=== PATIENT | female | born 1995 | race Caucasian/White ===

== ENCOUNTER 2017-01-08 13:04 | Emergency (ER) | payer MEDICAID ==
[2017-01-08 13:10] VITALS: RESP 16
[2017-01-08] MEDS ORDERED: Sodium Chloride 0.9% 1,000 ML IV ONE (13:20)
[2017-01-08] MEDS ORDERED: Sodium Chloride 0.9% 1,000 ML ONE (13:25)
[2017-01-08 13:53] LABS: BASO # 0.1 K/uL (0.0-0.2); BASO % 0.9 % (0.0-2.0); EOS # 0.2 K/uL (0.0-0.7); EOS % 2.1 % (0.0-4.0); HEMATOCRIT 41.6 % (34.0-47.0); LYMPH # 2.8 K/uL (1.0-4.3); LYMPH % 26.2 % (20.0-40.0); MEAN CELL VOLUME 87.9 fL (81.0-99.0); MEAN CORPUSCULAR HEMOGLOBIN 28.5 pg (27.0-31.0); MEAN CORPUSCULAR HGB CONC 32.4 g/dL (33.0-37.0); MEAN PLATELET VOLUME 8.6 fL (7.2-11.7); MONO # 0.7 K/uL (0.0-0.8); MONO % 6.3 % (0.0-10.0); RED CELL DISTRIBUTION WIDTH 12.6 % (11.5-14.5); WHITE BLOOD COUNT 10.5 K/uL (4.8-10.8)
[2017-01-08 14:05] LABS: RBC URINE 12 /hpf (0-3); URINE BACTERIA RARE (<OCC); URINE BILIRUBIN NEGATIVE (NEGATIVE); URINE BLOOD NEGATIVE (NEGATIVE); URINE COLOR Yellow (YELLOW); URINE GLUCOSE (UA) NORMAL (Normal); URINE KETONE TRACE mg/dL (NEGATIVE); URINE LEUKOCYTE ESTERASE 3+ Leu/uL (Negative); URINE PROTEIN NEGATIVE (NEGATIVE); URINE UROBILINOGEN NORMAL mg/dL (0.2-1.0); WBC URINE 10 /hpf (0-5)
[2017-01-08 14:31] LABS: CHLORIDE 103 mmol/L (98-107); POTASSIUM 3.9 mmol/L (3.6-5.2); SODIUM 137 mmol/L (132-148)
[2017-01-08 14:33] LABS: BILIRUBIN,TOTAL 0.5 mg/dL (0.2-1.3); GFR AFRICAN-AMERICAN > 60
[2017-01-08 14:34] LABS: ALB/GLOB RATIO 1.4 (1.0-2.1); ALKALINE PHOSPHATASE 54 U/L (38-126); ALT/SGPT 9 U/L (9-52); AST/SGOT 18 U/L (14-36); BLOOD UREA NITROGEN 7 mg/dL (7-17); CARBON DIOXIDE 20 mmol/L (22-30); GLUCOSE,RANDOM 73 mg/dL (65-105); TOTAL PROTEIN 6.5 g/dL (6.3-8.3)
[2017-01-08 14:35] LABS: CALCIUM 7.8 mg/dl (8.6-10.4)
--- NOTE | 2017-01-08 16:52 | US ---
PROCEDURE: OB Pelvic Ultrasound HISTORY: 1 month preg, pelvic pain. COMPARISON: None available. FINDINGS: LMP: 11/24/2016 UTERUS: Gestational sac: Single intrauterine gestation. Heart rate: 124 bpm. age (Ultrasound estimated): 5 weeks 4 days +/-0 weeks 3 days Tali-gestational hemorrhage: None. Date of delivery (Ultrasound estimated) : 09/06/2017 Uterus measures 9.3 x 4.6 x 4.3 cm. Normal in size and appearance. CERVIX: Long and closed. No cervical abnormality seen. RIGHT OVARY: Measures 5 x 2.8 x 3.9 cm. No mass lesion. Normal flow. There is 2 x 1.9 by 1.7 centimeters cyst seen at the right ovary likely represent corpus luteum cyst. LEFT OVARY: Measures 2.5 x 2.1 x 2.3 cm. No solid mass. Normal flow. FREE FLUID: Small amount of fluid seen in the cul de sac. OTHER FINDINGS: None. IMPRESSION: Single intrauterine live with ultrasound estimation of gestational age 5 weeks 4 days +/- 0 weeks 3 days. Estimated date of delivery by ultrasound is 09/06/2017. Small fluid seen in the cul de sac.
--- NOTE | 2017-01-08 16:53 | C.PDOC ---
History Of Present Illness 21 year old female, P:0 M:1, presents to the ED with complaints of suprapubic discomfort. Patient states she had a positive test at home and denies vaginal bleeding, fever, vomiting, or any other complaints at this time. Time Seen by Provider: 01/08/17 13:14 Chief Complaint (Nursing): Female Genitourinary History Per: Patient History/Exam Limitations: no limitations Onset/Duration Of Symptoms: Days Current Symptoms Are (Timing): Still Present Severity: Mild Associated Symptoms: denies: Fever, Chills, Nausea, Vomiting, Urinary Symptoms Abnormal Vaginal Bleeding: No Past Medical History Reviewed: Historical Data, Nursing Documentation, Vital Signs Vital Signs: Last Vital Signs Temp 98.6 F 01/08/17 17:02 Pulse 93 H 01/08/17 17:02 Resp 16 01/08/17 17:02 BP 114/68 01/08/17 17:02 Pulse Ox 97 01/08/17 17:02 - Medical History PMH: Asthma, HTN Surgical History: Tonsillectomy - [facility] Procedures INJECT/INFUSE NEC (04/11/15) NEBULIZER THERAPY (04/02/14) Family History: States: CAD, Diabetes, Hypertension - Social History Hx Tobacco Use: No Hx Alcohol Use: No Hx Substance Use: No - Immunization History Hx Tetanus Toxoid Vaccination: No Hx Influenza Vaccination: No Hx Pneumococcal Vaccination: No Review Of Systems Except As Marked, All Systems Reviewed And Found Negative. Constitutional: Negative for: Fever, Chills Gastrointestinal: Positive for: Abdominal Pain (+Suprapubic discomfort). Negative for: Nausea, Vomiting Genitourinary: Negative for: Dysuria, Frequency, Vaginal Discharge, Vaginal Bleeding Physical Exam - Physical Exam Appears: Non-toxic, No Acute Distress Skin: Normal Color, Warm, Dry Head: Atraumatic, Normacephalic Eye(s): bilateral: Normal Inspection Oral Mucosa: Moist Chest: Symmetrical, No Deformity Cardiovascular: Rhythm Regular, No Murmur Respiratory: Normal Breath Sounds, No Accessory Muscle Use, No Rales, No Rhonchi , No Wheezing Gastrointestinal/Abdominal: Soft, No Tenderness, No Distention, No Guarding, No Rebound Extremity: Normal ROM Neurological/Psych: Oriented x3, Normal Speech, Normal Cognition ED Course And Treatment - Laboratory Results Result Diagrams: 01/08/17 13:45 01/08/17 14:20 Lab Interpretation: Abnormal (quant hcg 7159 H, UA 10 WBC's, blood A+) Urine POC: Positive O2 Sat by Pulse Oximetry: 100 (Room air) Pulse Ox Interpretation: Normal - Other Rad preg US X-Ray: Read By Radiologist (+IUP @ 6 wks) Progress Note: 1st Trimester, Blood work and Urinalysis ordered and reviewed. Patient treated with IV fluids. Reevaluation Time: 16:51 Reassessment Condition: Improved Medical Decision Making Medical Decision Making: early preg, no ectopic, mild UTI Disposition Doctor Will See Patient In The: Office Counseled Patient/Family Regarding: Studies Performed, Diagnosis - Disposition Referrals: [facility] [Outside] [facility] [Outside] Zaida Mccord MD [Staff Provider] - Disposition: HOME/ ROUTINE Disposition Time: 16:52 Condition: GOOD Additional Instructions: UTI: Macrobid 100 mg twice a day for 5 days- repeat UA in 3 days Early - Daily vitamin Continue care @ our outpatient Clinic. Prescriptions: Nitrofurantoin Macrocrystals [Macrobid] 1 cap PO BID #10 cap Multivit/Folic Acid/I [ Plus] 1 tab PO DAILY #30 tab Instructions: Urinary Tract Infection in (ED) - Clinical Impression Clinical Impression: Urinary tract infection affecting - Scribe Statement The provider has reviewed the documentation as recorded by the Scribe Amira Horan. Provider Attestation: All medical record entries made by the Scribe were at my direction and personally dictated by me. I have reviewed the chart and agree that the record accurately reflects my personal performance of the history, physical exam, medical decision making, and the department course for this patient. I have also personally directed, reviewed, and agree with the discharge instructions and disposition.
[2017-01-08 17:03] VITALS: BP 114/68; PULSE 93; TEMP 98.6
[2017-01-08 19:46] VITALS: O2SAT 100
== END 2017-01-08 17:02 | disposition home or self-care (01) ==
LOC: C.ER 13:04
DX: O23.41 Unspecified infection of urinary tract in pregnancy, first trimester (principal); Z3A.01 Less than 8 weeks gestation of pregnancy
CPT/HCPCS: 76805; 76817; 80053; 81001; 84702; 84703; 85025; 86850; 86900; 96360; 99285; J7040

== ENCOUNTER 2017-06-05 18:21 | Inpatient (IN) | payer MEDICAID ==
[2017-06-05 19:03] VITALS: BMI 28.9
[2017-06-05 20:19] LABS: RBC URINE 2 /hpf (0-3); URINE BACTERIA RARE (<OCC); URINE BILIRUBIN NEGATIVE (NEGATIVE); URINE BLOOD NEGATIVE (NEGATIVE); URINE CALCIUM OXALATE CRYSTALS FEW /hpf (<OCC); URINE COLOR Yellow (YELLOW); URINE GLUCOSE (UA) NORMAL (Normal); URINE KETONE NEGATIVE (NEGATIVE); URINE LEUKOCYTE ESTERASE 3+ Leu/uL (Negative); URINE PROTEIN NEGATIVE (NEGATIVE); URINE UROBILINOGEN NORMAL mg/dL (0.2-1.0); WBC URINE 9 /hpf (0-5)
[2017-06-05] MEDS ORDERED: Magnesium Sulfate 4 gm/100 ml 4 GM/100 ML BAG IVPB ONE (21:10)
[2017-06-05] MEDS ORDERED: Betamethasone Soluspan 30 mg/5mL Inj Susp IM SCH (21:15)
[2017-06-05] MEDS ORDERED: Lactated Ringer's 1,000 ML IV SCH (21:15)
[2017-06-05] MEDS ORDERED: Magnesium Sulfate 20 gm 20 MG/0.5 ML BAG IV SCH (21:15)
[2017-06-05 21:48] LABS: BASO % 0.3 % (0.0-2.0); EOS # 0.1 K/uL (0.0-0.7); EOS % 1.1 % (0.0-4.0); HEMATOCRIT 35.4 % (34.0-47.0); LYMPH # 2.1 K/uL (1.0-4.3); LYMPH % 16.2 % (20.0-40.0); MEAN CELL VOLUME 86.2 fL (81.0-99.0); MEAN CORPUSCULAR HGB CONC 33.7 g/dL (33.0-37.0); MEAN PLATELET VOLUME 8.2 fL (7.2-11.7); MONO # 0.8 K/uL (0.0-0.8); MONO % 6.3 % (0.0-10.0); RED CELL DISTRIBUTION WIDTH 12.8 % (11.5-14.5); WHITE BLOOD COUNT 12.9 K/uL (4.8-10.8)
[2017-06-05] MEDS ORDERED: Magnesium Sulfate 20 gm 20,000 MG/500 ML BAG IV ONE (21:55)
[2017-06-05 22:02] LABS: CHLORIDE 103 mmol/L (98-107); POTASSIUM 3.4 mmol/L (3.6-5.2); SODIUM 138 mmol/L (132-148)
[2017-06-05 22:05] LABS: ALB/GLOB RATIO 1.1 (1.0-2.1); ALKALINE PHOSPHATASE 99 U/L (38-126); ALT/SGPT 21 U/L (9-52); AST/SGOT 20 U/L (14-36); BILIRUBIN,TOTAL 0.3 mg/dL (0.2-1.3); BLOOD UREA NITROGEN 5 mg/dL (7-17); CARBON DIOXIDE 22 mmol/L (22-30); GFR AFRICAN-AMERICAN > 60; GLUCOSE,RANDOM 80 mg/dL (65-105); TOTAL PROTEIN 6.4 g/dL (6.3-8.3)
[2017-06-05 22:06] LABS: CALCIUM 8.9 mg/dl (8.6-10.4)
[2017-06-05] MEDS ORDERED: Magnesium Sulfate 20 gm 20 GM/500 ML BAG IV SCH (22:45)
--- NOTE | 2017-06-06 00:02 | OBHP ---
Datetime: 06/05/2017 23:23 IP Adm Impression Other: Threatened labor. UTI IP Admit Plan: Admit to unit Admit Comment, IP Provider: Patient first seen and evaluated approximately 2100 21 y.o. , LMP unsure, LINA 09/06/17(per patient), EGA 26w 5d c/o low back pain upon getting up at 0200 hours. Denies dysuria or urinary frequency. Onset of lower abdominal pain 0930 hours: jayne t to work, pain got progressively until 1530 hours "they sent me home from work". LAP described as "c ramps"; pain scale 5/10. (+) AFM; denies LOF, VB. Last had sexual intercourse 2 days ago. care: Dr. Philippe, affiliated with [facility]. Last visit approx 4 weeks ago"I go every 4 we eks"; next visit 06/09/17. Denies issues to date. 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 (+) 2013, chlamydia PMH: 1) h/o heart murmur - does not require prophylactic antibiotics. 2) h/o asthma since "I was l ittle"; last attack 1 1/2 years ago. PSH: 2014, bilateral surgery for ingrown toenails Allergies: mucinex = anaphylaxis Meds: Not taken PNV x 2-3 weeks Soc Hx: denies tobacco, illicit drug or EtOH use. 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 Lives with her family (mother, etc) in her grandmother's house (who 05/26/17). Fam Hx: Mother alive 52 y.o. - DM. Father alive 49 y.o. HTN. (+) fam h/o unknown cancer P.E.: as above. WD in NAD. awake, alert, oriented to time, person and place. - U/A leuk esterase 3+; hazy Assessment: 23 yo. P0010, 26w5d, UTI; threatened labor. Discussed with patient the followi n) steroids for lung maturity, IVH and NEC in the event of delivery; 2)magnesium fo r meuroprotection and latency; 3) antibioitcs - both for treatment of UTI and prophylaxis. 4) in the unlikely event there is further cervical dilatation, will be transfered to [facility]. Priyanka ent expressed an understanding and agrees. FHR appropriate for gestational age. Clincally stable 1) Admit 2) NPO 3) IVFs 4) Magnesium load the maintenance 5) Continuous EFM 6) Celestone 12 mg IM x 2 doses, 24 hours apart 7) Ampicillin 8) Anticipate Ob ultraosund in AM 9) admission labs, incl TORCH 10) GC/chlamydia - urine 11) Observe, re-examine in 1-2 hours Addendum: 1804 - Patient reports feeling better: LAP and LBP have resolved - cervical exam unchanged. Plan: 1) Continue present management 2) Close observation Pelvic Type - PN: Adequate Extremities - PN: Normal Abdomen - PN: Normal Back - PN: Normal Breast - PN: Not Done Lungs - PN: Normal Heart - PN: Normal Thyroid - PN: Not Done Neurologic - PN: Normal HEENT - PN: Normal General - PN: Normal Presentation-Admit: Vertex FHR - Baseline A Provider: 150 Contraction Comments Provider: none detected Comments, ACOG Physical Exam: Abdomen: Gravid. Soft. (+) suprapubic pressure All other systems reviewed and are negative Gestation - Est Wks by US: 26w 5d FHR Category Provider Fetus A: Category I NICHD Decel Fetus A IP Provider: None Dilatation, Provider: 2 Effacement, Provider: long Station, Provider: high Genitourinary Exam: Normal DTRs - PN: Not Done
[2017-06-06] MEDS ORDERED: Magnesium Sulfate 20 gm 20 GM/500 ML BAG IV SCH (01:00)
--- NOTE | 2017-06-06 02:20 | OBPN ---
Datetime: 06/06/2017 02:03 Membranes, Provider: Intact Contraction Comments Provider: 1-4 FHR - Baseline A Provider: 140 IP Progress Note Comment: [facility] as above. Magnesium sulphate maintenance increased to 3 grams/ hour a t 0100 hours Cervical exam as above Assessment: 21 y.o. 26w 6d, threatened labor with cervical change on magnesium sulphate. S/P Celestone x 1 dose and ampicillin 2 gram. In light of cervical change, recommendation to transfe r to [facility] in the unlikely event of a delivery for Level III/NICU capability. This was discussed with the patient, who expressed an understanding and agrees. Case was discussed w karena Granados, [facility], who has agreed to accept the patient. Clinically stable. Plan: 1) Transfer to L_D at [facility]. NICHD Accel Fetus A IP Provider: 10X10 NICHD Variability Prov Fetus A: Moderate 6-25bpm Dilatation, Provider: 2-3 Effacement, Provider: 40 Station, Provider: -3 NICHD Decel Fetus A IP Provider: None Datetime: 06/05/2017 23:23 Gestation - Est Wks by US: 26w 5d Presentation-Admit: Vertex FHR Category Provider Fetus A: Category I
[2017-06-06 07:36] VITALS: BP 91/42; PULSE 85; RESP 16; TEMP 97.5
[2017-06-06 16:22] LABS: RAPID PLASMA REAGIN NONREACTIVE (NONREACTIVE)
--- NOTE | 2017-06-18 09:30 | OBADHP ---
Datetime: 06/06/2017 02:03 FHR - Baseline A Provider: 140 Membranes, Provider: Intact Contraction Comments Provider: 1-4 Gestation - Est Wks by US: 26w 6d NICHD Variability Prov Fetus A: Moderate 6-25bpm NICHD Accel Fetus A IP Provider: 10X10 NICHD Decel Fetus A IP Provider: None Dilatation, Provider: 2-3 Effacement, Provider: 40 Station, Provider: -3 Datetime: 06/05/2017 23:23 IP Adm Impression Other: Threatened labor. UTI Admit Comment, IP Provider: Patient first seen and evaluated approximately 2100 21 y.o. , LMP unsure, LINA 09/06/17(per patient), EGA 26w 5d c/o low back pain upon getting up at 0200 hours. Denies dysuria or urinary frequency. Onset of lower abdominal pain 0930 hours: jayne t to work, pain got progressively until 1530 hours "they sent me home from work". LAP described as "c ramps"; pain scale 5/10. (+) AFM; denies LOF, VB. Last had sexual intercourse 2 days ago. care: Dr. Philippe, affiliated with [facility]. Last visit approx 4 weeks ago"I go every 4 we eks"; next visit 06/09/17. Denies issues to date. 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 (+) 2013, chlamydia PMH: 1) h/o heart murmur - does not require prophylactic antibiotics. 2) h/o asthma since "I was l ittle"; last attack 1 1/2 years ago. PSH: 2015, bilateral surgery for ingrown toenails Allergies: mucinex = anaphylaxis Meds: PNV Soc Hx: denies tobacco, illicit drug or EtOH use. 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 Lives with h er family (mother, etc) in her grandmother's house (who 05/26/17). Fam Hx: Mother alive 52 y.o. - DM. Father alive 49 y.o. HTN. (+) fam h/o unknown cancer P.E.: as above. WD in NAD. awake, alert, oriented to time, person and place. - U/A leuk esterase 3+; hazy Assessment: 23 yo. P0010, 26w5d, UTI; threatened labor. Discussed with patient the followi n) steroids for lung maturity, IVH and NEC in the event of delivery; 2)magnesium fo r neuroprotection and latency; 3) antibiotics - both for treatment of UTI and prophylaxis. 4) in the unlikely event there is further cervical dilatation, will be transfered to [facility]. Priyanka ent expressed an understanding and agrees. FHR appropriate for gestational age. Clinically stable 1) Admit 2) NPO 3) IVFs 4) Magnesium sulphate load then maintenance 5) Continuous EFM 6) Celestone 12 mg IM x 2 doses, 24 hours apart 7) Ampicillin 8) Anticipate Ob ultrasound in AM 9) admission labs, incl TORCH 10) GC/chlamydia - urine 11) Observe, re-examine in 1-2 hours Addendum: 3073 - Patient reports feeling better: LAP and LBP have resolved - cervical exam unchanged. Plan: 1) Continue present management 2) Close observation Pelvic Type - PN: Adequate Extremities - PN: Normal Abdomen - PN: Normal Back - PN: Normal Breast - PN: Not Done Lungs - PN: Normal Heart - PN: Normal Thyroid - PN: Not Done Neurologic - PN: Normal HEENT - PN: Normal General - PN: Normal Presentation-Admit: Vertex Comments, ACOG Physical Exam: Abdomen: Gravid. Soft. (+) suprapubic pressure All other systems reviewed and are negative FHR Category Provider Fetus A: Category I Genitourinary Exam: Normal DTRs - PN: Not Done IP Admit Plan: Admit to unit
[2017-06-18 13:28] VITALS: O2SAT 99
== END 2017-06-06 02:55 | disposition short-term general hospital (02) | DRG 382 ==
LOC: C.EROB 18:21 → C.4D 21:12
PROVIDERS: ADMIT Obstetrics & Gynecology; ATTEND Obstetrics & Gynecology
DX: O47.02 False labor before 37 completed weeks of gestation, second trimester (principal); O23.42 Unspecified infection of urinary tract in pregnancy, second trimester; Z3A.26 26 weeks gestation of pregnancy

== ENCOUNTER 2018-12-27 15:11 | Emergency (ER) | payer MEDICAID, OTHER ==
[2018-12-27 15:11] VITALS: BMI 28.9
[2018-12-27 15:37] VITALS: BP 115/72; PULSE 79; TEMP 99.5; O2SAT 100
--- NOTE | 2018-12-27 15:42 | C.PDOC ---
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 Patient states she tripped over her khai toy, striking her forehead on the corner of her bedframe. Denies LOC. Patient is also complaining of a mild headache, rated a 2/10. Otherwise she denies any dizziness, chest pain, SOB, visual changes, nausea, or vomiting. She is unsure when was her last tetanus. Time Seen by Provider: 12/27/18 15:36 Chief Complaint (Nursing): Abnormal Skin Integrity History Per: Patient History/Exam Limitations: no limitations Onset/Duration Of Symptoms: Mins Current Symptoms Are (Timing): Still Present Location Of Injury: Right: Head Past Medical History Reviewed: Historical Data, Nursing Documentation, Vital Signs - Medical History PMH: Asthma Denies: Depression, Diabetes, HTN Surgical History: Tonsillectomy - [facility] Procedures INJECT/INFUSE NEC (04/11/15) NEBULIZER THERAPY (04/02/14) Family History: States: CAD, Diabetes, Hypertension - Social History Hx Tobacco Use: No Hx Alcohol Use: No Hx Substance Use: No - Immunization History Hx Tetanus Toxoid Vaccination: No Hx Influenza Vaccination: No Hx Pneumococcal Vaccination: No Review Of Systems Constitutional: Negative for: Fever, Weakness Eyes: Negative for: Vision Change Cardiovascular: Negative for: Chest Pain, Palpitations Respiratory: Negative for: Shortness of Breath Gastrointestinal: Negative for: Nausea, Vomiting, Diarrhea Musculoskeletal: Negative for: Neck Pain, Back Pain Skin: Positive for: Lesions (laceration above right eyebrow) Neurological: Positive for: Headache. Negative for: Weakness, Numbness, Change in Speech, Confusion, Altered Mental Status, Dizziness Physical Exam - Physical Exam Appears: Non-toxic, No Acute Distress Skin: Warm, Dry, No Rash Head: Normacephalic, Laceration (1.5 cm vertical laceration just medial to the right eyebrow), Other (No palpable fracture) Eye(s): bilateral: Normal Inspection, PERRL, EOMI Ear(s): Bilateral: Normal (No hemotympanum) Nose: Normal, No Deformity, No Septal Hematoma Oral Mucosa: Moist Neck: Normal ROM, No Midline Cervical Tenderness, No Paracervical Tenderness, Supple Chest: Symmetrical Cardiovascular: Rhythm Regular, No Murmur Respiratory: Normal Breath Sounds, No Accessory Muscle Use Extremity: Bilateral: Atraumatic, Normal Color And Temperature Pulses: Left Radial: Normal, Right Radial: Normal Neurological/Psych: Oriented x3, Normal Speech, Normal Cognition, Normal Cranial Nerves, Other (No focal deficits, No raccoon eyes, No battles sign) Gait: Steady ED Course And Treatment O2 Sat by Pulse Oximetry: 100 (on RA) Pulse Ox Interpretation: Normal Laceration - Laceration Repair right brow/forehead Wound Length (In cm): 1.5cm Description Of Wound: Linear Wound Cleansed With: Betadine, Sterile Saline Anesthesia: Lidocaine 1% Wound Examination: Irrigated With Saline, No FB With Wound Exploration Wound Closure: Suture (6) Suture Technique And Material Used: Interrupted, Prolene Wound Complexity: Simple Medical Decision Making Medical Decision Making: Plan: [place] CT Head Injury/Trauma Rule indicates CT is not recommended at this time. Discussed with patient, who agrees with plan. Return precautions discussed in detail with patient. Lido ordered for laceration repair. See procedure note. Disposition Counseled Patient/Family Regarding: Diagnosis, Need For Followup, Rx Given - Disposition Referrals: [facility] [Outside] Disposition: HOME/ ROUTINE Disposition Time: 16:26 Condition: STABLE Additional Instructions: Follow up in 7 days for suture removal Keep area Clean and Dry Take Motrin as neded for pain Return to ED if there are signs of infection prior to removal date Return to ED if disoriented, worse headache ever had, vomiting, etc Prescriptions: Ibuprofen [Motrin] 400 mg PO Q8 PRN #30 tab PRN Reason: Pain, Moderate (4-7) Instructions: Wound Care (DC), Laceration Repair With Stitches (DC) Forms: [employer] (Lebanese) - Clinical Impression Clinical Impression: Laceration of forehead - 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 - Scribe Statement The provider has reviewed the documentation as recorded by the Scribjose Tripathi All medical record entries made by the Scribe were at my direction and personally dictated by me. I have reviewed the chart and agree that the record accurately reflects my personal performance of the history, physical exam, medical decision making, and the department course for this patient. I have also personally directed, reviewed, and agree with the discharge instructions and disposition.
[2018-12-27] MEDS ORDERED: Lidocaine 1% Inj (20ml) INFIL ONE (15:52)
[2018-12-27] MEDS ORDERED: Lidocaine Hydrochloride 5 ML INJ ONE (16:00)
[2018-12-27] MEDS ORDERED: Tdap Vaccine 0.5 ml Vial (10-64 yrs) IM ONE ×2 (16:25→16:31)
[2018-12-27 16:33] VITALS: RESP 20
== END 2018-12-27 16:32 | disposition home or self-care (01) ==
LOC: C.ER 15:11
DX: S01.81XA Laceration without foreign body of other part of head, initial encounter (principal); W01.190A Fall on same level from slipping, tripping and stumbling with subsequent striking against furniture, initial encounter

== ENCOUNTER 2019-01-03 10:01 | Emergency (ER) | payer OTHER ==
[2019-01-03 10:14] VITALS: BP 118/54; PULSE 85; RESP 16; TEMP 98.9; O2SAT 97; BMI 27.0
[2019-01-03] MEDS ORDERED: Bacitracin 500 Units/gm Oint Foilpak UD TOP ONE (10:59)
--- NOTE | 2019-01-03 11:01 | C.PDOC ---
Time Seen by Provider: 01/03/19 10:44 Chief Complaint (Nursing): Suture/Staple Removal History Per: Patient Onset/Duration Of Symptoms: Days Ago (7), Laceration Current Symptoms Are (Timing): Better Location Of Injury: Right: Face (eyebrow) Quality Of Symptoms: denies: Painful, Swollen, Draining Severity: Mild Additional History Per: Prior Records Past Medical History Reviewed: Historical Data, Nursing Documentation, Vital Signs Vital Signs: Last Vital Signs Temp 98.9 F 01/03/19 10:11 Pulse 85 01/03/19 10:11 Resp 16 01/03/19 10:11 BP 118/54 L 01/03/19 10:11 Pulse Ox 97 01/03/19 10:11 - Medical History PMH: Asthma Surgical History: Tonsillectomy - [facility] Procedures INJECT/INFUSE NEC (04/11/15) NEBULIZER THERAPY (04/02/14) Family History: States: CAD, Diabetes, Hypertension - Social History Hx Tobacco Use: No Hx Alcohol Use: No Hx Substance Use: No - Immunization History Hx Tetanus Toxoid Vaccination: No Hx Influenza Vaccination: No Hx Pneumococcal Vaccination: No Review Of Systems Except As Marked, All Systems Reviewed And Found Negative. Constitutional: Negative for: Fever Eyes: Negative for: Pain, Vision Change, Conjunctivae Inflammation, Eyelid Inflammation, Redness Gastrointestinal: Negative for: Nausea, Vomiting Musculoskeletal: Negative for: Neck Pain Neurological: Negative for: Weakness, Numbness, Headache Physical Exam - Physical Exam Appears: Non-toxic, No Acute Distress Skin: Normal Color, Warm, Dry, No Rash Head: Atraumatic, Normacephalic Eye(s): bilateral: PERRL, EOMI, right: Other (Healing eyebrow laceration closed with sutures) Neck: Normal ROM, No Step Off Deformity, Supple Extremity: Normal ROM Neurological/Psych: Oriented x3, Normal Speech, Normal Cognition, Normal Cranial Nerves ED Course And Treatment O2 Sat by Pulse Oximetry: 97 Pulse Ox Interpretation: Normal Progress Note: Sutures were removed by me without complication. Reassessment Condition: Improved Disposition Counseled Patient/Family Regarding: Diagnosis, Need For Followup - Disposition Disposition: HOME/ ROUTINE Disposition Time: 11:05 Condition: IMPROVED Additional Instructions: Follow up with your doctor. Return to the ER if you develops redness, swelling, pus drainage, worsening of symptoms or if you have any other concerns. Instructions: Stitches Removal - Clinical Impression Clinical Impression: Visit for suture removal
[2019-01-03] MEDS ORDERED: Bacitracin 500 Units/gm Oint Foilpak UD ONE (11:03)
== END 2019-01-03 11:13 | disposition home or self-care (01) ==
LOC: C.ER 10:01
DX: Z48.02 Encounter for removal of sutures (principal)